=== PATIENT | male | born 1940 | race Caucasian/White ===

== ENCOUNTER → 2022-03-06 | Outpatient (CLI) | payer OTHER ==
[~2022-03-06] MED LIST: FOLI1TAB15 PO; GABA-531 PO; LOSA100T58 PO; MULT1CAP32 PO; NALT50TA PO; THIAM100TB PO; TRIA15CR48 TP
== END | disposition home or self-care (01) ==
LOC: SHCH 08:46
PROVIDERS: ATTEND Internal Medicine Cardiovascular Disease
DX: G45.1 Carotid artery syndrome (hemispheric) (principal)
CPT/HCPCS: 93880

== ENCOUNTER → 2022-03-08 | Outpatient (CLI) | payer OTHER ==
[~2022-03-08] MED LIST changes: +REGADENOSON 0.4 MG/5 ML PF SYG IVP SCH
== END | disposition home or self-care (01) ==
LOC: SHCH 08:20
PROVIDERS: ATTEND Internal Medicine Cardiovascular Disease
DX: I20.9 Angina pectoris, unspecified (principal); R07.9 Chest pain, unspecified
CPT/HCPCS: 78452; 93017; 96374; A9500 ×2; J2785

== ENCOUNTER 2024-07-15 13:10 | Inpatient (IN) | payer OTHER ==
[~2024-07-15] VITALS: Ht 180.3 cm; Wt 64.9 kg
[2024-07-15] VITALS (8 sets, daily range): BP systolic 103–118; BP diastolic 45–49; PULSE 84–89; RESP 18–20; TEMP 97.8–98.7; O2SAT 94–98
[~2024-07-15 13:10] MED LIST changes: +ACET-2079 PO; +ACET325C6 PO; +AEC81 PO; +ATOR40TA71 PO; +CYAN-52 PO; +DOCU-116 PO; +FAMO20TA8 PO; +FERR-63 PO; +FERS325 PO; +FOLI0.4T6 PO; -FOLI1TAB15 PO; +FURO20TA4 PO; -GABA-531 PO; +LACT10SO9 PO; -LOSA100T58 PO; -MULT1CAP32 PO; -NALT50TA PO; +ONDA-104 PO; -REGADENOSON 0.4 MG/5 ML PF SYG IVP SCH; +TAMS-1 PO; +THIA100T75 PO; -THIAM100TB PO; -TRIA15CR48 TP; +[UNRECOGNIZED DRUG - CODE] PO
[2024-07-15 13:42] LABS: BASOPHILS # (AUTO) 0.04 K/uL (0.00-0.20); BASOPHILS % (AUTO) 0.7 % (0.0-5.0); EOSINOPHILS # (AUTO) 0.03 K/uL (0.00-0.70); EOSINOPHILS % (AUTO) 0.5 % (0.0-8.0); IMMATURE GRANULOCYTE ABSOLUTE 0.37 K/uL (0-1); LYMPHOCYTES # (AUTO) 0.9 K/uL (1.0-4.8); LYMPHOCYTES % (AUTO) 15.8 % (21.0-51.0); MEAN CORPUSCULAR HEMOGLOBIN 25.8 pg (27.0-33.0); MEAN CORPUSCULAR HGB CONC 30.7 g/dL (32.0-36.0); MEAN CORPUSCULAR VOLUME 84.2 fL (79-99); MONOCYTES # (AUTO) 0.5 K/uL (0.1-1.0); MONOCYTES % (AUTO) 8.8 % (3.0-13.0); NEUTROPHILS # (AUTO) 3.7 K/uL (1.8-7.7); NEUTROPHILS % (AUTO) 67.4 % (40.0-77.0); NUCLEATED RED BLOOD CELLS 4.4 % (0.0-0.19); PLATELET COUNT (AUTO) 150 K/uL (130-400); RED CELL DISTRIBUTION WIDTH 28.1 % (11.0-15.5); WHITE BLOOD COUNT (AUTO) 5.5 K/uL (4.8-10.8)
[2024-07-15 13:48] LABS: POTASSIUM 4.4 mmol/L (3.5-5.1)
[2024-07-15 14:34] LABS: B-TYPE NATRIURETIC PEPTIDE 229 pg/mL (0-100)
[2024-07-15 14:46] LABS: HEMATOCRIT 20.2 % (42-54)
[2024-07-15 15:26] LABS: BAND NEUTROPHILS % (MANUAL) 12 % (0-2); LYMPHOCYTES % (MANUAL) 28 % (22-44); MAN.DIFF COMMENT-IMPRESSION MANUAL DIFFERENTIAL; MONOCYTES % (MANUAL) 1 % (2-9); REACTIVE LYMPHOCYTES 2 % (0-0); SEGMENTED NEUTROPHILS % 57 % (40-70); TOTAL CELLS COUNTED 100
[2024-07-15 15:27] LABS: WBC MORPHOLOGY IMMATURE GRAN 1+
[2024-07-15] MEDS ORDERED: hydrALAZine 20MG/ML VIAL IV PRN (16:30)
[2024-07-15] MEDS ORDERED: cefTRIAXone 1G VIAL 1 GM in 0.9%NACL 50ML 50 ML IV SCH (16:30)
[2024-07-15] MEDS ORDERED: DiphenhydrAMINE HCL 25 MG CAPSULE PO PRN (16:30)
[2024-07-15] MEDS ORDERED: MAG/ALUM/SIMETH 30 ML UDCUP PO PRN (16:30)
[2024-07-15] MEDS ORDERED: guaiFENesin-DM 200/20MG 10ML PO PRN (16:30)
[2024-07-15] MEDS ORDERED: NITROGLYCERIN 0.4 MG SL TAB SL PRN (16:30)
[2024-07-15 16:52] LABS: HEMATOCRIT 18.2 % (42-54)
[2024-07-15 17:00] LABS: RETICULOCYTE % (AUTO) 1.15 % (0.42-2.23)
[2024-07-15 17:48] LABS: % IRON SATURATION 20.3 % (30-44)
[2024-07-15 18:15] LABS: ALBUMIN 2.3 g/dL (3.5-5.0); BILIRUBIN,DIRECT 0.2 mg/dL (0.0-0.3); BILIRUBIN,TOTAL 0.5 mg/dL (0.2-1.0); TOTAL PROTEIN, SERUM 5.8 g/dL (6.0-8.3)
[2024-07-15] MEDS: AZITHROMYCIN 500MG+NS 250ML 250 ML IV SCH (18:18)
[2024-07-15] MEDS: cefTRIAXone 1G VIAL IVPB SCH (18:33)
[2024-07-15] MEDS: IpraTROPium/alBUTERol SULFATE 3 ML SOLUTION IH SCH (19:00)
[2024-07-15] MEDS: acetaMINOPHEN WITH coDEINE 1 TAB TAB PO PRN (22:13)
[2024-07-15 22:49] LABS: HEMATOCRIT 21.9 % (42-54)
[2024-07-15 23:01] LABS: ABG BASE EXCESS 0.8 mmol/L (-2.0-3.0); ABG HCO3 23.1 mmol/L (21.0-28.0); ABG OXYGEN SATURATION 94.9 % (94.0-98.0); ABG PCO2 31 mmHg (35-48); ABG PH 7.492 (7.350-7.450); DEVICE COMMENT LB RN MONICA; PO2, ARTERIAL BG 66.8 mmHg (83.0-108.0); VENT MODE, BG ROOMAIR (ROOM AIR)
[2024-07-15] MEDS: SODIUM CHLORIDE 3% FOR INHALATION 4 ML/AMP VIAL.NEB IH ONE (23:38)
[2024-07-16] VITALS (13 sets, daily range): BP systolic 101–109; BP diastolic 41–51; PULSE 73–85; RESP 17–22; TEMP 97.5–98.4; O2SAT 96–99
[2024-07-16 03:53] LABS: HEMATOCRIT 20.7 % (42-54)
[2024-07-16] MEDS ORDERED: ALBUTEROL 0.083% 2.5 MG/3 ML INH IH PRN (05:30)
[2024-07-16] MEDS ORDERED: IpraTROPium 0.5 MG/2.5 ML INH IH PRN (05:30)
[2024-07-16] MEDS ORDERED: guaiFENesin SUGAR-FREE 100 MG/5 ML UDCUP PO PRN (05:30)
[2024-07-16] MEDS: SODIUM CHLORIDE 3% FOR INHALATION 4 ML/AMP VIAL.NEB IH ONE ×2 (06:24→11:12)
[2024-07-16] MEDS: PANTOPRAZOLE 40 MG/VIAL IVP SCH (09:25)
[2024-07-16 10:23] LABS: HEMATOCRIT 25.9 % (42-54)
[2024-07-16] MEDS: ONDANSETRON 4MG INJ ONE (10:32)
[2024-07-16] MEDS ORDERED: IRON sUCROse COMPLEX 300 MG in 0.9% NACL 250ML 250 ML IV SCH (13:00)
[2024-07-16 13:29] LABS: BASOPHILS # (AUTO) 0.05 K/uL (0.00-0.20); BASOPHILS % (AUTO) 0.8 % (0.0-5.0); EOSINOPHILS # (AUTO) 0.09 K/uL (0.00-0.70); EOSINOPHILS % (AUTO) 1.4 % (0.0-8.0); IMMATURE GRANULOCYTE ABSOLUTE 0.56 K/uL (0-1); LYMPHOCYTES # (AUTO) 0.7 K/uL (1.0-4.8); LYMPHOCYTES % (AUTO) 11.1 % (21.0-51.0); MEAN CORPUSCULAR HEMOGLOBIN 27.2 pg (27.0-33.0); MEAN CORPUSCULAR HGB CONC 31.6 g/dL (32.0-36.0); MEAN CORPUSCULAR VOLUME 85.9 fL (79-99); MONOCYTES # (AUTO) 0.5 K/uL (0.1-1.0); MONOCYTES % (AUTO) 7.7 % (3.0-13.0); NEUTROPHILS # (AUTO) 4.4 K/uL (1.8-7.7); NUCLEATED RED BLOOD CELLS 2.3 % (0.0-0.19); PLATELET COUNT (AUTO) 116 K/uL (130-400); RED BLOOD CELL COUNT(AUTO) 2.98 MIL/uL (4.50-6.20); RED CELL DISTRIBUTION WIDTH 21.6 % (11.0-15.5); WHITE BLOOD COUNT (AUTO) 6.2 K/uL (4.8-10.8)
[2024-07-16] MEDS: LACTULOSE 20 GM/30 ML UDCUP PO PRN (13:54)
[2024-07-16] MEDS: FOLic ACID 1 MG TABLET PO SCH (13:54)
[2024-07-16] MEDS: CYANOCOBALAMIN (VITAMIN B-12) 1,000 MCG TABLET PO SCH (13:54)
[2024-07-16 16:25] LABS: HEMATOCRIT 24.3 % (42-54)
[2024-07-16] MEDS: furoSEMIDE 40MG VIAL IV SCH (19:42)
[2024-07-16] MEDS: tamSULOsin HCL 0.4 MG CAP.ER.24H PO SCH (20:18)
[2024-07-16] MEDS ORDERED: HYDR500C2 PO (20:24)
[2024-07-16] MEDS: ONDANSETRON 4MG INJ IVP PRN (20:26)
[2024-07-17] VITALS (18 sets, daily range): BP systolic 93–149; BP diastolic 47–84; PULSE 61–94; RESP 16–19; TEMP 97.8–99.5; O2SAT 85–96
[2024-07-17 04:39] LABS: BASOPHILS # (AUTO) 0.07 K/uL (0.00-0.20); EOSINOPHILS # (AUTO) 0.17 K/uL (0.00-0.70); EOSINOPHILS % (AUTO) 2.4 % (0.0-8.0); HEMATOCRIT 31.1 % (42-54); IMMATURE GRANULOCYTE ABSOLUTE 0.54 K/uL (0-1); LYMPHOCYTES # (AUTO) 0.8 K/uL (1.0-4.8); LYMPHOCYTES % (AUTO) 11.1 % (21.0-51.0); MEAN CORPUSCULAR HEMOGLOBIN 27.6 pg (27.0-33.0); MEAN CORPUSCULAR HGB CONC 31.8 g/dL (32.0-36.0); MEAN CORPUSCULAR VOLUME 86.6 fL (79-99); MONOCYTES # (AUTO) 0.8 K/uL (0.1-1.0); MONOCYTES % (AUTO) 11.1 % (3.0-13.0); NEUTROPHILS # (AUTO) 4.7 K/uL (1.8-7.7); NEUTROPHILS % (AUTO) 66.7 % (40.0-77.0); NUCLEATED RED BLOOD CELLS 2.1 % (0.0-0.19); PLATELET COUNT (AUTO) 69 K/uL (130-400); RED BLOOD CELL COUNT(AUTO) 3.59 MIL/uL (4.50-6.20); RED CELL DISTRIBUTION WIDTH 21.8 % (11.0-15.5)
[2024-07-17 04:56] LABS: MAGNESIUM 2.3 mg/dL (1.80-2.40); PHOSPHORUS 4.5 mg/dL (2.5-4.9); POTASSIUM 3.5 mmol/L (3.5-5.1)
[2024-07-17 05:15] LABS: BAND NEUTROPHILS % (MANUAL) 6 % (0-2); LYMPHOCYTES % (MANUAL) 25 % (22-44); METAMYELOCYTES % 9 % (0-0); MONOCYTES % (MANUAL) 8 % (2-9); OTHER CELLS,MANUAL % 2 (0-0); REACTIVE LYMPHOCYTES 1 % (0-0); SEGMENTED NEUTROPHILS % 49 % (40-70); TOTAL CELLS COUNTED 100
[2024-07-17 05:17] LABS: MAN.DIFF COMMENT-IMPRESSION MANUAL DIFFERENTIAL; WBC MORPHOLOGY SMUDGE CELLS 1+
[2024-07-17] MEDS ORDERED: PHARMACY COMMUNICATION MISC SCH (09:30)
[2024-07-17] MEDS: doCUSate SODIUM 100 MG CAP PO SCH (11:00)
[2024-07-17] MEDS: polyETHYLene GLYCol 3350 17 GM POWD.PACK PO SCH (11:02)
[2024-07-17] MEDS ORDERED: furoSEMIDE 40MG VIAL IV SCH (18:00)
[2024-07-17] MEDS ORDERED: cefTRIAXone 1G VIAL IVPB SCH (18:30)
[2024-07-17] MEDS: CEFTRIAXONE 2GM VIAL IVPB SCH (22:21)
[2024-07-17] MEDS: furoSEMIDE 40MG VIAL IV SCH (22:21)
[2024-07-18] VITALS (16 sets, daily range): BP systolic 94–107; BP diastolic 44–53; PULSE 72–98; RESP 18; TEMP 98.1–99.1; O2SAT 93–98
[2024-07-18 03:36] LABS: BASOPHILS # (AUTO) 0.04 K/uL (0.00-0.20); BASOPHILS % (AUTO) 0.7 % (0.0-5.0); EOSINOPHILS # (AUTO) 0.06 K/uL (0.00-0.70); HEMATOCRIT 24.6 % (42-54); IMMATURE GRANULOCYTE ABSOLUTE 0.46 K/uL (0-1); LYMPHOCYTES # (AUTO) 0.8 K/uL (1.0-4.8); LYMPHOCYTES % (AUTO) 13.4 % (21.0-51.0); MEAN CORPUSCULAR HEMOGLOBIN 27.4 pg (27.0-33.0); MEAN CORPUSCULAR HGB CONC 31.3 g/dL (32.0-36.0); MEAN CORPUSCULAR VOLUME 87.5 fL (79-99); MONOCYTES # (AUTO) 0.8 K/uL (0.1-1.0); MONOCYTES % (AUTO) 12.9 % (3.0-13.0); NEUTROPHILS # (AUTO) 3.8 K/uL (1.8-7.7); NEUTROPHILS % (AUTO) 64.3 % (40.0-77.0); NUCLEATED RED BLOOD CELLS 3.4 % (0.0-0.19); PLATELET COUNT (AUTO) 87 K/uL (130-400); RED BLOOD CELL COUNT(AUTO) 2.81 MIL/uL (4.50-6.20); RED CELL DISTRIBUTION WIDTH 22.1 % (11.0-15.5)
[2024-07-18 03:43] LABS: POTASSIUM 3.1 mmol/L (3.5-5.1)
[2024-07-18] MEDS: KCL 20 MEQ ERTAB PO PRN (04:58)
[2024-07-18] MEDS ORDERED: POTASSIUM CHLORIDE 10% ELIXIR 20 MEQ/15 ML UDCUP PO PRN (05:00)
[2024-07-18] MEDS ORDERED: POTASSIUM CHLORIDE 20MEQ/100ML 100 ML IV PRN (05:00)
[2024-07-18 09:32] LABS: HEMATOCRIT 24.4 % (42-54)
[2024-07-18] MEDS: acetaMINOPHEN 325 MG TAB PO PRN (20:30)
[2024-07-19] VITALS (17 sets, daily range): BP systolic 98–131; BP diastolic 41–73; PULSE 79–92; RESP 16–20; TEMP 98–99; O2SAT 88–96
[2024-07-19 03:42] LABS: BASOPHILS # (AUTO) 0.04 K/uL (0.00-0.20); EOSINOPHILS # (AUTO) 0.09 K/uL (0.00-0.70); EOSINOPHILS % (AUTO) 2.2 % (0.0-8.0); HEMATOCRIT 24.3 % (42-54); IMMATURE GRANULOCYTE ABSOLUTE 0.35 K/uL (0-1); LYMPHOCYTES # (AUTO) 0.8 K/uL (1.0-4.8); LYMPHOCYTES % (AUTO) 19.5 % (21.0-51.0); MEAN CORPUSCULAR HEMOGLOBIN 27.2 pg (27.0-33.0); MEAN CORPUSCULAR HGB CONC 31.7 g/dL (32.0-36.0); MEAN CORPUSCULAR VOLUME 85.9 fL (79-99); MONOCYTES # (AUTO) 0.6 K/uL (0.1-1.0); MONOCYTES % (AUTO) 15.1 % (3.0-13.0); NEUTROPHILS # (AUTO) 2.2 K/uL (1.8-7.7); NEUTROPHILS % (AUTO) 53.6 % (40.0-77.0); NUCLEATED RED BLOOD CELLS 3.2 % (0.0-0.19); PLATELET COUNT (AUTO) 69 K/uL (130-400); RED BLOOD CELL COUNT(AUTO) 2.83 MIL/uL (4.50-6.20); WHITE BLOOD COUNT (AUTO) 4.1 K/uL (4.8-10.8)
[2024-07-19 03:52] LABS: POTASSIUM 3.7 mmol/L (3.5-5.1)
[2024-07-19 05:47] LABS: BLASTS, MANUAL % 1 (0-0); EOSINOPHILS % (MANUAL) 2 % (1-6); LYMPHOCYTES % (MANUAL) 47 % (22-44); REACTIVE LYMPHOCYTES 3 % (0-0); SEGMENTED NEUTROPHILS % 47 % (40-70); TOTAL CELLS COUNTED 100
[2024-07-19 05:48] LABS: MAN.DIFF COMMENT-IMPRESSION MANUAL DIFFERENTIAL; PLATELET MORPHOLOGY COMMENT DECREASED; WBC MORPHOLOGY IMMATURE LYMPHS 2+
[2024-07-19] MEDS: EPOETIN ALFA-EPBX (NON-ESRD) 10,000 UNIT/ML VIAL SQ SCH (17:58)
[2024-07-20] VITALS (7 sets, daily range): BP systolic 109–120; BP diastolic 46–56; PULSE 74–85; RESP 16–20; TEMP 98.4–98.9; O2SAT 93–97
[2024-07-20 06:26] LABS: BASOPHILS # (AUTO) 0.05 K/uL (0.00-0.20); BASOPHILS % (AUTO) 0.9 % (0.0-5.0); EOSINOPHILS # (AUTO) 0.12 K/uL (0.00-0.70); EOSINOPHILS % (AUTO) 2.1 % (0.0-8.0); HEMATOCRIT 24.6 % (42-54); IMMATURE GRANULOCYTE ABSOLUTE 0.45 K/uL (0-1); LYMPHOCYTES # (AUTO) 1.1 K/uL (1.0-4.8); LYMPHOCYTES % (AUTO) 18.8 % (21.0-51.0); MEAN CORPUSCULAR HEMOGLOBIN 27.3 pg (27.0-33.0); MEAN CORPUSCULAR HGB CONC 32.1 g/dL (32.0-36.0); MEAN CORPUSCULAR VOLUME 85.1 fL (79-99); MONOCYTES # (AUTO) 0.7 K/uL (0.1-1.0); MONOCYTES % (AUTO) 12.2 % (3.0-13.0); NEUTROPHILS # (AUTO) 3.2 K/uL (1.8-7.7); NEUTROPHILS % (AUTO) 57.9 % (40.0-77.0); NUCLEATED RED BLOOD CELLS 0.9 % (0.0-0.19); PLATELET COUNT (AUTO) 62 K/uL (130-400); RED BLOOD CELL COUNT(AUTO) 2.89 MIL/uL (4.50-6.20); RED CELL DISTRIBUTION WIDTH 21.8 % (11.0-15.5); WHITE BLOOD COUNT (AUTO) 5.6 K/uL (4.8-10.8)
[2024-07-20 06:42] LABS: POTASSIUM 3.7 mmol/L (3.5-5.1)
[2024-07-20] MEDS ORDERED: AZIT500T4 PO (15:30)
[2024-07-20] MEDS ORDERED: CEFD300C3 PO (15:32)
== END 2024-07-20 16:30 | disposition home or self-care (01) | DRG 189 ==
LOC: EDH 13:10 → EDHIP 16:15 → 2DH 17:36
PROVIDERS: ADMIT Hospitalist; ATTEND Hospitalist
PROC: 30233N1 Transfusion of Nonautologous Red Blood Cells into Peripheral Vein, Percutaneous Approach (ICD-10-PCS; principal; 2024-07-15)
DX: J96.01 Acute respiratory failure with hypoxia (principal); E43 Unspecified severe protein-calorie malnutrition; J44.1 Chronic obstructive pulmonary disease with (acute) exacerbation; J98.11 Atelectasis; I50.32 Chronic diastolic (congestive) heart failure; D62 Acute posthemorrhagic anemia; J90 Pleural effusion, not elsewhere classified; Z68.1 Body mass index [BMI] 19.9 or less, adult; I11.0 Hypertensive heart disease with heart failure; D50.9 Iron deficiency anemia, unspecified; I73.9 Peripheral vascular disease, unspecified; E78.00 Pure hypercholesterolemia, unspecified; D72.829 Elevated white blood cell count, unspecified; K57.30 Diverticulosis of large intestine without perforation or abscess without bleeding; J43.9 Emphysema, unspecified; R19.5 Other fecal abnormalities; K59.00 Constipation, unspecified; Z87.891 Personal history of nicotine dependence; N40.0 Benign prostatic hyperplasia without lower urinary tract symptoms; Z86.73 Personal history of transient ischemic attack (TIA), and cerebral infarction without residual deficits
CPT/HCPCS: 36415; 36430; 36600; 71045; 71250; 80048; 80076; 82140; 82607; 82728; 82803; 83735; 83880; 84100; 84145; 84484; 85014; 85018; 85025; 86850; 86900; 86901; 86923; 93005; 93306; 94640; 94664; 94760; 96365; 99291; G0378; J0456; J0696; J1940; J2405; J2470; P9016; Q5106